=== PATIENT | female | born 1950 | race Two or more races ===

== ENCOUNTER 2023-12-06 19:28 | Emergency (ER) | payer OTHER ==
[~2023-12-06] VITALS: Ht 157.5 cm; Wt 51.7 kg
[2023-12-06] MEDS ORDERED: FAMOTIDINE/PF 20 MG/2 ML VIAL IV STA (20:32)
[2023-12-06] MEDS ORDERED: ONDANSETRON HCL 2 MG/ML VIAL IV STA (20:32)
[2023-12-06] MEDS ORDERED: ACETAMINOPHEN 325 MG TABLET PO STA (20:34)
[2023-12-06] MEDS ORDERED: 0.9 % SODIUM CHLORIDE 500 ML IV STA (20:38)
[2023-12-06] MEDS ORDERED: XARELTO10 MG (20:39)
[2023-12-06] MEDS ORDERED: GLIMEPIRIDE1 M1 PO (20:40)
[2023-12-06] MEDS ORDERED: ACETAMINOPHEN 500 MG GEL..CAP PO ONE (20:50)
[2023-12-06] MEDS ORDERED: FAMOTIDINE/PF 20 MG/2 ML VIAL ONE (20:50)
[2023-12-06] MEDS ORDERED: ONDANSETRON HCL 2 MG/ML VIAL ONE ×3 (20:50→23:47)
[2023-12-06] MEDS ORDERED: MECLIZINE HCL 25 MG TABLET PO ONE (23:47)
[2023-12-06 23:56] LABS: HEMATOCRIT 37.6 % (36.0-45.00); HEMOGLOBIN 12.4 g/dL (12.0-15.00); MEAN CELL VOLUME 86.5 fL (80.00-100.00); MEAN CORPUSCULAR HEMOGLOBIN 28.5 pg (27.00-32.0); MEAN CORPUSCULAR HGB CONC 32.9 g/dl (32.0-36.0); PLATELET COUNT 303 K/uL (150-450); RED BLOOD COUNT 4.34 M/uL (4.00-6.00); RED CELL DISTRIBUTION WIDTH 14.3 % (11.5-14.5)
[2023-12-07 00:02] LABS: URINE APPEARANCE Clear; URINE BILIRRUBIN Negative (NEGATIVE); URINE BLOOD NHT; URINE COLOR Yellow; URINE KETONE 15 (NEGATIVE); URINE LEUKOCYTE Negative; URINE NITRATE Negative; URINE PROTEIN Trace (NEGATIVE); URINE UROBILINOGEN 0.2 E.U./dl
[2023-12-07 00:06] LABS: URINE BACTERIA 22.6 uL (0.0-1933); URINE EPITHELIAL CELLS 2.1 uL (0.0-38.8); URINE RBC 36.3 uL (0.0-20.8)
[2023-12-07 00:13] LABS: URINE CAST 1.06 uL (0.0-1.40); URINE GLUCOSE >=1000 MG/DL (NEGATIVE)
[2023-12-07] MEDS ORDERED: MECLIZINE HCL 25 MG TABLET PO ONE (00:15)
[2023-12-07] MEDS ORDERED: ONDANSETRON HCL 2 MG/ML VIAL IV ONE (00:15)
[2023-12-07 00:23] LABS: ALBUMIN 3.5 gm/dL (3.4-5.0); BILIRUBIN TOTAL 0.61 mg/dL (0.3-1.2); CREATININE SERUM 1.11 mg/dL (0.55-1.02); GFR 47.92; GLOBULINA 4.2 G/DL (2.4-3.5); POTASSIUM 4.53 mEq/L (3.5-5.1); TOTAL PROTEIN 7.7 gm/dL (6.4-8.2)
[2023-12-07 00:25] LABS: INR 1.16; PARTIAL THROMBOPLASTIN TIME 33.7 SECONDS (22.0-34.0); PROTHROMBIN TIME 12.5 SECONDS (9.0-11.5)
== END 2023-12-07 02:30 | disposition home or self-care (01) ==
LOC: ER 19:29
PROVIDERS: Emergency Medicine
DX: H81.10 Benign paroxysmal vertigo, unspecified ear (principal); R11.10 Vomiting, unspecified
CPT/HCPCS: 36415; 70450; 93005; 96365; 96366; 99284; J2405 ×2; J3490; J7042